=== PATIENT | male | born 1960 | race Caucasian/White ===

== ENCOUNTER 2017-06-02 14:11 | Observation (INO) ==
--- NOTE | 2017-06-02 15:13 | Emergency Department Note ---
Disposition Clinical Impression: Vertigo, Acute pain of both ears, Anterior neck pain Disposition: Admitted As Inpatient Condition: Fair Time of Disposition: 18:00 SOB HPI - General Chief Complaint: ED Shortness of Breath/Dyspnea Stated Complaint: Robert from ENT Time Seen by Provider: 06/02/17 15:07 Source: patient Limitations: no limitations Nursing Notes Reviewed: Yes Vital Signs Reviewed: Yes - History of Present Illness 56-year-old male complains of right ear pain that started 6 weeks ago which progressed to severe vertigo-like symptoms with associated diaphoresis, nausea and over the last 3 days having difficulty ambulating and reports falling due to dizziness 3 times. Patient denies any injuries related to the falls, and no LOC. Patient states that pain in his right ear has spread to include anterior part of his neck, and describes the discomfort as "someone choking me". [facility] and his had trials of several antibiotics to treat his ear pain symptoms at the onset but his symptoms persist. Patient was referred to ENTand was being evaluated today by Fabien Ramirez, and based on his symptoms, sent to the ER for evaluation. - Related Data Home Medications Medication Instructions Recorded Confirmed Amoxicillin/Clavulanate [Augmentin] 875 mg PO BIDWM 06/02/17 Atorvastatin [Lipitor] 40 mg PO HS 06/02/17 06/02/17 Baclofen 20 mg PO TID PRN 06/02/17 06/02/17 Benzonatate [Tessalon] 100 mg PO TID 06/02/17 Carboxymethylcellulose Sodium 1 drop BOTH EYES TID 06/02/17 06/02/17 [Refresh Liquigel] Cinnamon Bark [Cinnamon] 500 mg PO DAILY 06/02/17 06/02/17 Clopidogrel [Plavix] 75 mg PO DAILY 06/02/17 06/02/17 Curcumin 1 tab PO DAILY 06/02/17 06/02/17 Diclofenac Sodium [Voltaren] 2 gm TP BID 06/02/17 06/02/17 Etodolac [Lodine] 400 mg PO BID 06/02/17 06/02/17 Furosemide [Lasix] 20 mg PO DAILY PRN 06/02/17 06/02/17 Gabapentin [Neurontin] 600 mg PO QID 06/02/17 06/02/17 Lactobacillus Acidophilus 1 each PO BID 06/02/17 06/02/17 [Acidophilus] Lidocaine 4% CRM (LMX) [Lmx 4] 1 appl TP BID 06/02/17 06/02/17 Loperamide HCl [Anti-Diarrheal] 2 mg PO TID PRN 06/02/17 06/02/17 Multivitamin [One Daily 1 each PO DAILY 06/02/17 06/02/17 Multivitamin] Mupirocin [Bactroban Oint] 1 appl TP TID 06/02/17 06/02/17 Naproxen [Naprosyn] 500 mg PO BID 06/02/17 06/02/17 Niacin 100 mg PO DAILY 06/02/17 06/02/17 Omeprazole [PriLOSEC] 20 mg PO DAILY 06/02/17 06/02/17 Potassium Citrate/Citric Acid 10 ml PO DAILY 06/02/17 06/02/17 [Virtrate-K Solution] Promethazine [Phenergan] 25 mg PO Q6H PRN 06/02/17 06/02/17 Trazodone HCl 100 mg PO HS PRN 06/02/17 06/02/17 Vardenafil HCl [Levitra] 10 mg PO AD PRN 06/02/17 06/02/17 Venlafaxine XR (24 HR) [Effexor XR] 150 mg PO DAILY 06/02/17 06/02/17 metFORMIN [Glucophage] 500 mg PO BIDWM 06/02/17 06/02/17 Allergies Allergy/AdvReac Type Severity Reaction Status Date / Time No Known Allergies Allergy Verified 06/02/17 14:33 All systems ED: reviewed and negative except as stated. Review of Systems: As Per HPI Constitutional: Reports: weakness, night sweats. Denies: fever, chills ENT ED: Reports: ear pain. Denies: hearing loss Cardiovascular: Denies: chest pain Respiratory: Denies: cough, dyspnea, wheezes Gastrointestinal: Reports: nausea. Denies: abdominal pain, vomiting, diarrhea Genitourinary: Denies: urgency, dysuria Musculoskeletal: Reports: neck pain. Denies: back pain Neurological: Reports: vertigo Past Medical History - Past Medical History Attestation: Yes The following information was validated with the patient. Source: patient, nursing notes reviewed Medical history: Reports: coronary artery disease, diabetes, hyperlipidemia, hypertension, TIA, other Psychiatric history: Reports: PTSD - Social History Smoking Status: Current every day smoker Smokeless Tobacco Status: No Alcohol use: Reports: none Drug use: Reports: none Physical Exam Vital Signs Temperature 98.9 F 06/02/17 14:30 Pulse Rate 85 06/02/17 14:30 Respiratory Rate 24 06/02/17 14:30 Blood Pressure 115/82 06/02/17 14:30 O2 Sat by Pulse Oximetry 96 06/02/17 14:30 Temperature 98.9 F 06/02/17 14:30 Pulse Rate 65 06/02/17 16:15 Respiratory Rate 22 06/02/17 16:15 Blood Pressure 118/71 06/02/17 16:15 O2 Sat by Pulse Oximetry 96 06/02/17 16:15 Oxygen Delivery Oxygen Delivery Room Air CONSTITUTIONAL: Alert and oriented X3, well-nourished, who is holding his head very still due to vertigo with head turning and changes in position. HEAD: Normocephalic; atraumatic. Ears: Tympanic membranes without inflammation or purulence EYES: EOMI,PERRL, no nystagmus appreciated. NOSE: The nose is normal in appearance without rhinorrhea Neck: Mild ant cervical adenopathy b/l with assoc'd TTP. No JVD no tracheal deviation. RESP: Normal chest excursion with respiration; breath sounds clear and equal bilaterally; no wheezes, rhonchi, or rales CARD: Regular rhythm, without murmurs, rub or gallop ABD: Non-distended; non-tender, soft,without rigidity, rebound or guarding SKIN: Normal for age and race; warm and dry; no apparent lesions, no rashes, no diaphoresis. NEUROLOGICAL: Patient is alert and oriented times three. Cranial nerves III- XII are intact. Sensory and motor functions are intact. Strength is 5/5 for flexion and extension in all 4 extremities. Patellar DTRS are equal and intact. Finger to nose testing is equal and normal bilaterally. No dysdiadochokinesis. Unable to ambulate secondary to severe vertigo-like symptoms with sitting up - General Limitations: no limitations General appearance: alert Course - Reevaluation(s) Reevaluation #1: Patient is back from CT. Patient states she is feeling a little better after the meclizine. Patient sat up but immediately felt dizzy again and had to close his eyes and sit back. Upon sitting back complaining of bilateral ear pain. Time: 17:25 Time: 18:23 - Consultations Consultation #1: I spoke to Dr. Conn, and he said he sent the patient over to the emergency department for his profound weakness. He did not find anything alarming. Time: 15:31 Time: 18:23 Vital Signs Temperature 98.9 F 06/02/17 14:30 Pulse Rate 85 06/02/17 14:30 Respiratory Rate 24 06/02/17 14:30 Blood Pressure 115/82 06/02/17 14:30 O2 Sat by Pulse Oximetry 96 06/02/17 14:30 Temperature 97.8 F 06/03/17 07:56 Pulse Rate 53 06/03/17 07:56 Respiratory Rate 14 06/03/17 07:56 Blood Pressure 107/67 06/03/17 07:56 O2 Sat by Pulse Oximetry 97 06/03/17 07:56 Oxygen Delivery Oxygen Delivery Room Air Shortness of Breath/Dyspnea - MDM Narrative Medical decision making narrative: 56-year-old male presents with bilateral ear pain, and anterior neck pain/ squeezing sensation that has been progressively worsening for the past 6 weeks. Patient has severe vertigo-like symptoms which causes diaphoresis and pallor and extreme nausea with generalized weakness which was witnessed at ENT visit today and patient was directed to the ED. Patient's symptoms concerning for possible peripheral of BPPV, vestibular neuronitis, Meniere's disease given patient's (complaint of severe tinnitus along with ear pain, but no diminished hearing) versus central causes of vertigo of compression of cranial nerve VIII or damage to vestibular apparatus within the ear. CT head was ordered to investigate central causes of vertigo and possible. Patient was given meclizine as well which had minimal effect. Head CT shows a remote left frontal lobe infarct but no other abnormalities. CT cervical soft tissue showed no abnormalities. Chest x-ray was clear of any abnormalities. Patient's lab workup was negative for any abnormal findings, troponin was negative, TSH is negative. Patient's symptoms have continued to persist and we recommend admission for further workup and MRI of the brain with neurology consult. Patient understands and agrees to this plan of action and accepts the decision for admission. Patient was accepted for admission by hospitalist Stalin Perez who accepted patient in stable condition. - Lab Data Lab results reviewed: Yes I reviewed the patient's lab results. Lab results narrative: Short CBC 06/02/17 Range/Units 16:06 WBC 10.4 (4.3-11.1) K/mcL Hgb 17.1 H (12.9-16.9) g/dL Hct 49.2 (37.5-50.1) % Plt Count 220 (140-400) K/mcL Neutrophils # 6.4 (1.6-8.9) K/mcL BMP 06/02/17 Range/Units 16:06 Sodium 139 (136-145) mEq/L Potassium 3.9 (3.5-5.1) mEq/L Chloride 112 H (98-107) mEq/L Carbon Dioxide 24 (23-29) mEq/L BUN 15 (6-20) mg/dL Creatinine 0.99 (0.70-1.30) mg/dL Glucose 75 (70-105) mg/dL Calcium 9.6 (8.6-10.3) mg/dL Cardiac Enzymes 06/02/17 Range/Units 16:06 Troponin I < 0.03 (< 0.04) ng/mL Liver Function 06/02/17 Range/Units 16:06 Total Bilirubin 0.8 (0.3-1.0) mg/dL AST 16 (13-39) Units/L ALT 14 (7-52) Units/L Alkaline Phosphatase 88 (34-104) Units/L Albumin 4.4 (3.5-5.7) g/dL Result diagrams: 06/02/17 16:06 06/03/17 05:56 Lab Results 06/02/17 06/02/17 06/02/17 Range/Units 16:06 16:06 16:06 WBC 10.4 (4.3-11.1) K/mcL RBC 5.46 (4.19-5.50) M/mcL Hgb 17.1 H (12.9-16.9) g/dL Hct 49.2 (37.5-50.1) % MCV 90.1 (83.0-100.0) fL MCH 31.3 (28.0-33.3) pg MCHC 34.8 (31.6-35.5) g/dL RDW 13.4 (11.5-14.5) % Plt Count 220 (140-400) K/mcL MPV 9.4 (9.4-12.4) fL Immature Gran % 0.4 (0-4) % Seg Neutrophils % 61.5 % Lymphocytes % 26.8 % Monocytes % 7.9 % Eosinophils % 2.6 % Basophils % 0.8 % Neutrophils # 6.4 (1.6-8.9) K/mcL Lymphocytes # 2.8 (0.6-4.6) K/mcL Monocytes # 0.8 (0.0-1.3) K/mcL Eosinophils # 0.3 (0.0-0.6) K/mcL Basophils # 0.1 (0.0-0.2) K/mcL Sodium 139 (136-145) mEq/L Potassium 3.9 (3.5-5.1) mEq/L Chloride 112 H (98-107) mEq/L Carbon Dioxide 24 (23-29) mEq/L BUN 15 (6-20) mg/dL Creatinine 0.99 (0.70-1.30) mg/dL Est GFR ( Amer) > 60 (> 60) Est GFR (Non-Af Amer) > 60 (> 60) BUN/Creatinine Ratio 15 (6-26) Glucose 75 (70-105) mg/dL Calculated Osmolality 288 (280-300) Calcium 9.6 (8.6-10.3) mg/dL Total Bilirubin 0.8 (0.3-1.0) mg/dL AST 16 (13-39) Units/L ALT 14 (7-52) Units/L Alkaline Phosphatase 88 (34-104) Units/L Troponin I < 0.03 (< 0.04) ng/mL Serum Total Protein 7.1 (6.4-8.9) g/dL Albumin 4.4 (3.5-5.7) g/dL Globulin 2.7 (2.4-3.5) g/dL Albumin/Globulin Ratio 1.6 (1.1-2.2) TSH (0.340-5.600) mcIU/mL 06/02/17 Range/Units 16:06 WBC (4.3-11.1) K/mcL RBC (4.19-5.50) M/mcL Hgb (12.9-16.9) g/dL Hct (37.5-50.1) % MCV (83.0-100.0) fL MCH (28.0-33.3) pg MCHC (31.6-35.5) g/dL RDW (11.5-14.5) % Plt Count (140-400) K/mcL MPV (9.4-12.4) fL Immature Gran % (0-4) % Seg Neutrophils % % Lymphocytes % % Monocytes % % Eosinophils % % Basophils % % Neutrophils # (1.6-8.9) K/mcL Lymphocytes # (0.6-4.6) K/mcL Monocytes # (0.0-1.3) K/mcL Eosinophils # (0.0-0.6) K/mcL Basophils # (0.0-0.2) K/mcL Sodium (136-145) mEq/L Potassium (3.5-5.1) mEq/L Chloride (98-107) mEq/L Carbon Dioxide (23-29) mEq/L BUN (6-20) mg/dL Creatinine (0.70-1.30) mg/dL Est GFR ( Amer) (> 60) Est GFR (Non-Af Amer) (> 60) BUN/Creatinine Ratio (6-26) Glucose (70-105) mg/dL Calculated Osmolality (280-300) Calcium (8.6-10.3) mg/dL Total Bilirubin (0.3-1.0) mg/dL AST (13-39) Units/L ALT (7-52) Units/L Alkaline Phosphatase (34-104) Units/L Troponin I (< 0.04) ng/mL Serum Total Protein (6.4-8.9) g/dL Albumin (3.5-5.7) g/dL Globulin (2.4-3.5) g/dL Albumin/Globulin Ratio (1.1-2.2) TSH 0.976 (0.340-5.600) mcIU/mL - Radiology Data Radiology results reviewed: Yes I reviewed the patient's radiology results. Chest X-Ray 06/02/17 14:36 IMPRESSION: No active cardiopulmonary disease D/ / Johnathan Daily MD / Johnathan Daily MD Interpreting Provider: Johnathan Daily MD Head CT 06/02/17 15:39 IMPRESSION: 1. No acute intracranial abnormality. 2. No abnormal intracranial enhancement. 3. Remote left frontal lobe infarct. D/ / Francis Grewal MD / Francis Grewal MD Interpreting Provider: Francis Grewal MD Soft Tissue Neck CT 06/02/17 15:48 IMPRESSION: No acute abnormality of the neck soft tissues or finding to suggest etiology of patient's symptoms. D/ / Migue Floyd / Migue Floyd Interpreting Provider: Migue Floyd - EKG Data EKG attestation: Yes I reviewed and interpreted this EKG. EKG results narrative: EKG taken 06/02/2017 at 1440 hrs. shows sinus rhythm at a rate of 75 beats minute with no acute ST elevations or depressions nares, no QS widening or QT prolongation. No old EKG for comparison. Attestation Statement - Attestation Attestation: Patient is a 56 yo wm, who is sent to us by Dr. Conn from his ENT office for vertigo associated with nausea and diaphoresis. [facility] hx of grad worsening bilateral ear pain, R>L. Pt was initially treated with various antibx regimens, with no improvement. Pt states that over the past week, he has been having grad worsening vertigo, worse with head turning and positional changes associated with worsening ear pain. Pt also c/o "choking sensation" around ant neck, with no visible STS/overlying skin changes. Pt denies ST, no odynophagia/dysphagia, no difficulty managing secretions, and no stridor or resp distress. No facial edema, no SOB/cough/ wheezing. No F/C,no reported weight loss. Pt also states that he has been experiencing night sweats for the past week as well. No hx falls/trauma preceding the onset of symptoms. Pt does endorse 3 recent mechanical falls at home secondary to the intensity of the dizziness at times. Pt denies any physical injuries related to the falls, and no LOC. Pt with GCS=15, and no focal deficits with clear speech. Pt denies any COOPER/visual changes. I agree with pt's PE fidnings as documented, VSS on arrival. EKG shows NSR without acute ischemia. Pt placed on continuous cardiac monitoring, pulse ox, IV est and given IVF and zofran/meclizine. Pt with lab evaluation and CT imaging of head/neck for further neuro eval. Pt with only mild improvement of symptoms following meds. Pt's labs wnl, CT imaging wnl. Concerned with ongoing vertigo and pt unable to ambulate due to ongoing vertigo. Would benefit from further inpt mgmt and symptom tx; D/W hospitalist who accepted pt for admission.
[2017-06-02] MEDS ORDERED: 0.9 % Sodium Chloride 500 ML IVC ONE (15:38)
[2017-06-02] MEDS ORDERED: Ondansetron 4 MG/2 ML VIAL IVP ONE (15:38)
[2017-06-02 16:25] LABS: Basophils # 0.1 K/mcL (0.0-0.2); Basophils % 0.8 %; Eosinophils # 0.3 K/mcL (0.0-0.6); Eosinophils % 2.6 %; Hematocrit 49.2 % (37.5-50.1); Hemoglobin 17.1 g/dL (12.9-16.9); Immature Granulocytes % 0.4 % (0-4); Lymphocytes # 2.8 K/mcL (0.6-4.6); Lymphocytes % 26.8 %; Mean Corpuscular HGB Conc 34.8 g/dL (31.6-35.5); Mean Corpuscular Hemoglobin 31.3 pg (28.0-33.3); Mean Corpuscular Volume 90.1 fL (83.0-100.0); Mean Platelet Volume 9.4 fL (9.4-12.4); Monocytes # 0.8 K/mcL (0.0-1.3); Monocytes % 7.9 %; Neutrophils # 6.4 K/mcL (1.6-8.9); Platelet Count 220 K/mcL (140-400); Red Blood Count 5.46 M/mcL (4.19-5.50); Red Cell Distribution Width 13.4 % (11.5-14.5); Segmented Neutrophils % 61.5 %
[2017-06-02 16:33] LABS: Alanine Aminotransferase 14 Units/L (7-52); Albumin 4.4 g/dL (3.5-5.7); Albumin/Globulin Ratio 1.6 (1.1-2.2); Alkaline Phosphatase 88 Units/L (34-104); Aspartate Amino Transferase 16 Units/L (13-39); BUN/Creatinine Ratio 15 (6-26); Bilirubin,Total 0.8 mg/dL (0.3-1.0); Blood Urea Nitrogen 15 mg/dL (6-20); Calcium 9.6 mg/dL (8.6-10.3); Carbon Dioxide 24 mEq/L (23-29); Chloride 112 mEq/L (98-107); Globulin 2.7 g/dL (2.4-3.5); Glucose 75 mg/dL (70-105); Osmolality,Calculated 288 (280-300); Potassium 3.9 mEq/L (3.5-5.1); Sodium 139 mEq/L (136-145); Total Protein 7.1 g/dL (6.4-8.9); eGFR For African Americans > 60 (> 60); eGFR For Non-African Americans > 60 (> 60)
--- NOTE | 2017-06-02 20:40 | Internal Med History&Physical ---
Date of Encounter: 06/02/17 Time of Encounter: 20:34 Assessment and Plan (1) Diabetes 1.5, managed as type 2 Current visit: Yes Status: Acute Chronic we will resume home medication and place on sliding scale (2) Hyperlipidemia Current visit: Yes Status: Chronic Chronic recheck in a.m. Qualifiers: Hyperlipidemia type: pure hypercholesterolemia Qualified Code(s): E78.00 - Pure hypercholesterolemia, unspecified; E78.0 - Pure hypercholesterolemia (3) CAD (coronary artery disease) Current visit: Yes Status: Chronic Detail of patient history of CAD S having no chest pain Qualifiers: Coronary Disease-Associated Artery/Lesion type: [place] artery [place] vs. transplanted heart: nikolai heart Associated angina: without angina Qualified Code(s): I25.10 - Atherosclerotic heart disease of nikolai coronary artery without angina pectoris (4) Acute pain of both ears Current visit: Yes Status: Acute Patient was seen by ENT today and sent to the emergency room (5) Hx of syncope Current visit: Yes Status: Acute Patient reports episode of syncope about 3 times this week patient blood pressures as low likely orthostatic hypotension versus vasodepressor syncope or troponin ekg monitor tech and IV hydration (6) Vertigo Current visit: Yes Status: Acute Regarding dizziness or MRI of the head and MRA to evaluate posterior circulation also neurology consult Internal Medicine - H&P: HPI Chief complaint: virtigo Admitted From: Emergency Dept Plans for Post Hospital Care: Home History of present illness: Mr. Nath is a 56 year old male Patient with history of CAD, diabetes, high cholesterol, hypertension, TIA and PTSD Patient is sent to emergency room from ENT office due to acute vertigo pain in both ears. Patient has had right ear pain started about 6 weeks ago with severe vertigo-like syndrome worse at night associated with diaphoresis and nausea and loss of balance patient also has had recurrent syncope been seen and tried on several different [facility] by [facility] the symptom was not getting better he was sent to r ENT for evaluation and at ENT office Patient developed weakness , nauseated and bilateral ear pain and then sent to the emergency room. CT of the head in the emergency room was negative patient being admitted for further evaluation with MRI. Patient feels better after being given meclizine in the emergency room per ER documentation ENT evaluation was unremarkable findings to explain symptoms Past Med Surg Social Fam HX - Past Medical History Medical history: coronary artery disease, diabetes, hyperlipidemia, hypertension , TIA, other Psychiatric history: PTSD - Social History Smoking Status: Current every day smoker Smokeless Tobacco Status: No Alcohol use: none Drug use: none Internal Medicine - H&P: Meds Amoxicillin/Clavulanate [Augmentin] 875 mg PO BIDWM 06/02/17 [History] Atorvastatin [Lipitor] 40 mg PO HS 06/02/17 [History] Baclofen 20 mg PO TID PRN 06/02/17 [History] Benzonatate [Tessalon] 100 mg PO TID 06/02/17 [History] Carboxymethylcellulose Sodium [Refresh Liquigel] 1 drop BOTH EYES TID 06/02/17 [ History] Cinnamon Bark [Cinnamon] 500 mg PO DAILY 06/02/17 [History] Clopidogrel [Plavix] 75 mg PO DAILY 06/02/17 [History] Curcumin 1 tab PO DAILY 06/02/17 [History] Diclofenac Sodium [Voltaren] 2 gm TP BID 06/02/17 [History] Etodolac [Lodine] 400 mg PO BID 06/02/17 [History] Furosemide [Lasix] 20 mg PO DAILY PRN 06/02/17 [History] Gabapentin [Neurontin] 600 mg PO QID 06/02/17 [History] Lactobacillus Acidophilus [Acidophilus] 1 each PO BID 06/02/17 [History] Lidocaine 4% CRM (LMX) [Lmx 4] 1 appl TP BID 06/02/17 [History] Loperamide HCl [Anti-Diarrheal] 2 mg PO TID PRN 06/02/17 [History] Multivitamin [One Daily Multivitamin] 1 each PO DAILY 06/02/17 [History] Mupirocin [Bactroban Oint] 1 appl TP TID 06/02/17 [History] Naproxen [Naprosyn] 500 mg PO BID 06/02/17 [History] Niacin 100 mg PO DAILY 06/02/17 [History] Omeprazole [PriLOSEC] 20 mg PO DAILY 06/02/17 [History] Potassium Citrate/Citric Acid [Virtrate-K Solution] 10 ml PO DAILY 06/02/17 [ History] Promethazine [Phenergan] 25 mg PO Q6H PRN 06/02/17 [History] Trazodone HCl 100 mg PO HS PRN 06/02/17 [History] Vardenafil HCl [Levitra] 10 mg PO AD PRN 06/02/17 [History] Venlafaxine XR (24 HR) [Effexor XR] 150 mg PO DAILY 06/02/17 [History] metFORMIN [Glucophage] 500 mg PO BIDWM 06/02/17 [History] 3 Allergy/AdvReac Type Severity Reaction Status Date / Time No Known Allergies Allergy Verified 06/02/17 14:33 All Systems PM: A 10-system review of systems was performed and is negative for pertinent findings except as documented above in the HPI. - Constitutional Constitutional: no chills, no fever(s), no night sweats - EENT Eyes: no change in vision, no discharge, no pain, no photophobia Ears: ear pain, tinnitus, other, no ear discharge Nose, mouth and throat: no dysphagia, no nasal discharge, no neck pain, no sore throat - Cardiovascular Cardiovascular ROS IM: syncope, no chest pain, no diaphoresis, no dyspnea, no lightheadedness, no palpitations - Respiratory Respiratory: no cough, no dyspnea, no wheezing, no excessive phlegm production - Gastrointestinal Gastrointestinal: no abdominal pain, no diarrhea, no hematemesis, no hematochezia, no melena, no nausea, no vomiting - Musculoskeletal Musculoskeletal ROS IM: no numbness, no tingling - Integumentary Integumentary IM: no rash, no unusual bruising - Neurological Neurological ROS: vertigo - Hematologic/Lymphatic Hematologic/Lymphatic: no easy bruising - Constitutional Vitals: Temp Pulse Resp BP Pulse Ox 98.4 F 70 16 96/57 94 06/02/17 20:33 06/02/17 20:33 06/02/17 20:33 06/02/17 20:33 06/02/17 20:33 - Head Head exam: Present: atraumatic, normocephalic - Eye Eye exam: Present: PERRL, conjuntiva pink, sclera anicteric Pupils: Present: PERRL - Neck Neck exam general surgery: Present: supple, trachea midline. Absent: lymphadenopathy - Respiratory Respiratory exam: Present: CTAB. Absent: accessory muscle use, rales, rhonchi, wheezes - Cardiovascular Cardiovascular exam: Present: RRR, +S1, +S2. Absent: diastolic murmur, gallop, rubs, systolic murmur - GI/Abdominal GI/Abdominal exam: Present: normal bowel sounds, soft, no peritoneal signs. Absent: distended, tenderness - Extremities Exam Extremities exam: Present: warm, radial pulses palpable and symmetrical. Absent : calf tenderness, cyanotic, pedal edema - Neurological Exam Neurological exam: Present: CN II-XII intact, oriented X3, no focal deficits. Absent: pronater drift, facial droop, speech deficit - Skin Skin exam: Present: dry, intact Internal Med - H&P Results - Labs CBC & Chem 7: 06/02/17 16:06 06/02/17 16:06
[2017-06-02] MEDS ORDERED: Naloxone 0.4 MG/ML INJ IVP PRN (20:44)
[2017-06-02] MEDS ORDERED: traMADol 50 MG TABLET PO PRN (20:44)
[2017-06-02] MEDS ORDERED: Acetaminophen 325 MG TABLET PO PRN (20:44)
[2017-06-02] MEDS ORDERED: traZODone 50 MG TABLET PO PRN (20:47)
[2017-06-02] MEDS ORDERED: Baclofen 10 MG TABLET PO PRN (20:47)
[2017-06-02] MEDS: Gabapentin 300 MG CAPSULE PO SCH (22:53)
[2017-06-02] MEDS: 0.9 % Sodium Chloride 1,000 ML IVC SCH (22:53)
[2017-06-02] MEDS: Lactobacillus 1 EACH CAP.SPRINK PO SCH (22:53)
[2017-06-02] MEDS: Artificial Tears SOLN 15 ML BOTTLE BOTH EYES SCH (22:54)
[2017-06-02] MEDS: Lidocaine 4% CREAM (LMX) 5 GM TP SCH (23:46)
[2017-06-02] MEDS: (Diclofenac Sodium [Voltaren] 2 GM) TP SCH (23:47)
[2017-06-03 06:44] LABS: Alanine Aminotransferase 14 Units/L (7-52); Albumin 3.8 g/dL (3.5-5.7); Albumin/Globulin Ratio 1.6 (1.1-2.2); Alkaline Phosphatase 75 Units/L (34-104); Aspartate Amino Transferase 15 Units/L (13-39); BUN/Creatinine Ratio 18 (6-26); Bilirubin,Total 0.7 mg/dL (0.3-1.0); Blood Urea Nitrogen 16 mg/dL (6-20); Calcium 8.9 mg/dL (8.6-10.3); Carbon Dioxide 26 mEq/L (23-29); Chloride 113 mEq/L (98-107); Chol/HDL Ratio 4.1 (0-4.9); Cholesterol 116 mg/dL (< 200); Globulin 2.4 g/dL (2.4-3.5); Glucose 87 mg/dL (70-105); HDL Cholesterol 28 mg/dL (40-59); LDL Cholesterol,Calculated 65 mg/dL (0-99); Magnesium 1.9 mg/dL (1.6-2.6); Osmolality,Calculated 291 (280-300); Sodium 140 mEq/L (136-145); Total Protein 6.2 g/dL (6.4-8.9); Triglycerides 113 mg/dL (< 150); eGFR For African Americans > 60 (> 60); eGFR For Non-African Americans > 60 (> 60)
[2017-06-03] MEDS: 0.9 % Sodium Chloride 1,000 ML IVC SCH (08:23)
[2017-06-03] MEDS: Gabapentin 300 MG CAPSULE PO SCH ×4 (08:26→21:22)
[2017-06-03] MEDS: Lidocaine 4% CREAM (LMX) 5 GM TP SCH (08:26)
[2017-06-03] MEDS: Lactobacillus 1 EACH CAP.SPRINK PO SCH ×2 (08:27→21:22)
[2017-06-03] MEDS: Venlafaxine XR (24 HR) 150 MG CAP.ER.24H PO SCH (08:27)
[2017-06-03] MEDS: Multivit/Ca/Min/Fe/FA 1 TAB TABLET PO SCH (08:27)
[2017-06-03] MEDS: (Diclofenac Sodium [Voltaren] 2 GM) TP SCH (08:29)
[2017-06-03] MEDS: Artificial Tears SOLN 15 ML BOTTLE BOTH EYES SCH ×3 (08:29→21:22)
--- NOTE | 2017-06-03 08:53 | Cardiology Consult Note ---
Date of Encounter: 06/03/17 Time of Encounter: 08:51 Assessment and Plan (1) Hx of syncope Current Visit: Yes Status: Acute Patient reports lightheadedness and room spinning upon standing. No LOC. Appears orthostatic in nature. Do not believe this is cardiac in nature. MRI brain and MRA head and neck will be the most important investigations. Will f/u on echo. If normal patient will not require any further cardiac work up. patient bradycardicat timest the 50's. Asymptomatic. HR 51-85. continue tele monitoring. would suggest checking orthostatic vital signs BPs 132-82/86-50 over last 24hrs Discussion w patient/family: The assessment and plan as outlined above was discussed with the patient and/or family members who expressed understanding and agreement. All questions were answered. Thank you for involving us in the care of your patient. Please call with any questions. History of Present Illness Consult date: 06/02/17 Requesting physician: Nyla Pope Consult reason: syncope Chief complaint: Vertigo, Neck pain History of present illness: Mr. Nath is a 56 year old male c PMHx of CAD, DM, HLD, HTN, TIA who reports to [facility] for anterior neck pain and vertigo. Patient reports he has been having anterior neck pain that feels like someone is choking him for the last 6 weeks. This pain radiates up to his ears. Patient appears to have had concerns about his neck for almost a year seeing ENT for the first time in June of 2016. Patient has been worked up with CT soft tissue of neck at that time that was normal. Patient reports his BP has been low lately and that when he stands up he will have lightheadedness, that progresses to room spinning and falling down , but no LOC. Patient reports generalized weakness. Patient denies chest pain, SOB, palpitations, focal weakness, slurred speech, new numbness/tingling. On this admission he has received another CT neck soft tissue which was again normal, CT head which showed no acute intercranial abnormality, just a remote left frontal infarct. Troponin's negative x 3, TSH normal, lab work overall unremarkable. Patient is scheduled for an ECHO, an MRI brain, and an MRA head and neck. Past Med Surg Social Fam HX - Past Medical History Medical history: coronary artery disease, diabetes, hyperlipidemia, hypertension , TIA, other Psychiatric history: PTSD - Social History Smoking Status: Current every day smoker Smokeless Tobacco Status: No Alcohol use: none Drug use: none Medications and Allergies Amoxicillin/Clavulanate [Augmentin] 875 mg PO BIDWM 06/02/17 [History] Atorvastatin [Lipitor] 40 mg PO HS 06/02/17 [History] Baclofen 20 mg PO TID PRN 06/02/17 [History] Benzonatate [Tessalon] 100 mg PO TID 06/02/17 [History] Carboxymethylcellulose Sodium [Refresh Liquigel] 1 drop BOTH EYES TID 06/02/17 [ History] Cinnamon Bark [Cinnamon] 500 mg PO DAILY 06/02/17 [History] Clopidogrel [Plavix] 75 mg PO DAILY 06/02/17 [History] Curcumin 1 tab PO DAILY 06/02/17 [History] Diclofenac Sodium [Voltaren] 2 gm TP BID 06/02/17 [History] Etodolac [Lodine] 400 mg PO BID 06/02/17 [History] Furosemide [Lasix] 20 mg PO DAILY PRN 06/02/17 [History] Gabapentin [Neurontin] 600 mg PO QID 06/02/17 [History] Lactobacillus Acidophilus [Acidophilus] 1 each PO BID 06/02/17 [History] Lidocaine 4% CRM (LMX) [Lmx 4] 1 appl TP BID 06/02/17 [History] Loperamide HCl [Anti-Diarrheal] 2 mg PO TID PRN 06/02/17 [History] Multivitamin [One Daily Multivitamin] 1 each PO DAILY 06/02/17 [History] Mupirocin [Bactroban Oint] 1 appl TP TID 06/02/17 [History] Naproxen [Naprosyn] 500 mg PO BID 06/02/17 [History] Niacin 100 mg PO DAILY 06/02/17 [History] Omeprazole [PriLOSEC] 20 mg PO DAILY 06/02/17 [History] Potassium Citrate/Citric Acid [Virtrate-K Solution] 10 ml PO DAILY 06/02/17 [ History] Promethazine [Phenergan] 25 mg PO Q6H PRN 06/02/17 [History] Trazodone HCl 100 mg PO HS PRN 06/02/17 [History] Vardenafil HCl [Levitra] 10 mg PO AD PRN 06/02/17 [History] Venlafaxine XR (24 HR) [Effexor XR] 150 mg PO DAILY 06/02/17 [History] metFORMIN [Glucophage] 500 mg PO BIDWM 06/02/17 [History] 3 Allergy/AdvReac Type Severity Reaction Status Date / Time No Known Allergies Allergy Verified 06/02/17 14:33 All Systems Review: A 10-system review of systems was performed and is negative for pertinent findings except as documented above in the HPI. Physical Examination Vital Signs, Last 4 Hours Temp Pulse Resp BP Pulse Ox 06/03/17 07:56 97.8 F 53 14 107/67 97 General: Conversant, No Apparent Distress HEENT: Atraumatic, Normocephaly, Mucus Membranes Moist Neck: No JVD, Normal carotid pulses Cardiac: Reg Rate and Rhythm, Normal S1 and S2, No Murmur Lungs: Normal Breath Sounds, No Wheeze, Rales, Rhonchi Neuro: Alert and responsive, No focal deficits noted Abdomen: Soft, Non-Tender Skin: No rashes noted on visualized skin Musculoskeletal: No Chest Wall Tenderness Extremities: No Clubbing, No Cyanosis, No Edema, Normal Pulses Results 06/02/17 16:06 06/03/17 05:56 Lab Results 06/02/17 06/03/17 06/03/17 22:00 05:56 05:56 Sodium 140 Potassium 4.0 Chloride 113 H Carbon Dioxide 26 BUN 16 Creatinine 0.90 Glucose 87 Calcium 8.9 Magnesium 1.9 Total Bilirubin 0.7 AST 15 ALT 14 Alkaline Phosphatase 75 Troponin I < 0.03 < 0.03 B-Natriuretic Peptide 06/03/17 05:56 Sodium Potassium Chloride Carbon Dioxide BUN Creatinine Glucose Calcium Magnesium Total Bilirubin AST ALT Alkaline Phosphatase Troponin I B-Natriuretic Peptide 11 Consult Discharge Plan - Plan Referrals: [facility] [Outside]
[2017-06-03] MEDS ORDERED: (Cinnamon Bark [Cinnamon] 500 MG) PO SCH (09:00)
[2017-06-03] MEDS ORDERED: (Niacin [Niacin] 100 MG) PO SCH (09:00)
--- NOTE | 2017-06-03 09:26 | Neurology - Consult Note ---
Date of Encounter: 06/03/17 Time of Encounter: 09:23 Assessment and Plan (1) Vertigo Current Visit: Yes Status: Acute Patient presents with vertigo in the setting head movements that was sudden onset and has been going on intermittently for the last week. Patient also has 2 beat nystagmus of the left eye with left gaze. Patient's symptoms appear to be consistent BVVP. Concern for intracranial lesion as low as the patient has no other focal deficits however it is reasonable to proceed with intracranial imaging to rule out intracranial pathology. Orthostatic hypotension is also a possibility so would agree with checking orthostatic vital signs. Recommend physical therapy consult to evaluate and treat BVVP. We will follow-up after neuroimaging. History of Present Illness Chief complaint: vertigo HPI: Mr. Nath is a 56 year old male who presents with dizziness. Patient states that approximately week ago he had sudden onset of his dizziness symptoms. He reports a feeling of lightheadedness in room spinning. He states this is intermittent and comes and goes. He feels like this is brought on by movement of his head or neck. Dates the dizziness can last for variable amounts times from minutes to a half hour so. He states it is so severe that he falls times. He denies loss of consciousness. He states he has a chronic headache that occurs approximately weekly and has for years, he denies any new or changing headache. He reports some nausea associated with his symptoms. He reports chronic left arm numbness and tingling due to degenerative disc disease and he has had for many years. Denies any new focal deficits. He denies any new medication changes. Past Med Surg Social Fam HX - Past Medical History Medical history: coronary artery disease, diabetes, hyperlipidemia, hypertension , TIA, other Psychiatric history: PTSD - Social History Smoking Status: Current every day smoker Smokeless Tobacco Status: No Alcohol use: none Drug use: none Medications and Allergies Amoxicillin/Clavulanate [Augmentin] 875 mg PO BIDWM 06/02/17 [History] Atorvastatin [Lipitor] 40 mg PO HS 06/02/17 [History] Baclofen 20 mg PO TID PRN 06/02/17 [History] Benzonatate [Tessalon] 100 mg PO TID 06/02/17 [History] Carboxymethylcellulose Sodium [Refresh Liquigel] 1 drop BOTH EYES TID 06/02/17 [ History] Cinnamon Bark [Cinnamon] 500 mg PO DAILY 06/02/17 [History] Clopidogrel [Plavix] 75 mg PO DAILY 06/02/17 [History] Curcumin 1 tab PO DAILY 06/02/17 [History] Diclofenac Sodium [Voltaren] 2 gm TP BID 06/02/17 [History] Etodolac [Lodine] 400 mg PO BID 06/02/17 [History] Furosemide [Lasix] 20 mg PO DAILY PRN 06/02/17 [History] Gabapentin [Neurontin] 600 mg PO QID 06/02/17 [History] Lactobacillus Acidophilus [Acidophilus] 1 each PO BID 06/02/17 [History] Lidocaine 4% CRM (LMX) [Lmx 4] 1 appl TP BID 06/02/17 [History] Loperamide HCl [Anti-Diarrheal] 2 mg PO TID PRN 06/02/17 [History] Multivitamin [One Daily Multivitamin] 1 each PO DAILY 06/02/17 [History] Mupirocin [Bactroban Oint] 1 appl TP TID 06/02/17 [History] Naproxen [Naprosyn] 500 mg PO BID 06/02/17 [History] Niacin 100 mg PO DAILY 06/02/17 [History] Omeprazole [PriLOSEC] 20 mg PO DAILY 06/02/17 [History] Potassium Citrate/Citric Acid [Virtrate-K Solution] 10 ml PO DAILY 06/02/17 [ History] Promethazine [Phenergan] 25 mg PO Q6H PRN 06/02/17 [History] Trazodone HCl 100 mg PO HS PRN 06/02/17 [History] Vardenafil HCl [Levitra] 10 mg PO AD PRN 06/02/17 [History] Venlafaxine XR (24 HR) [Effexor XR] 150 mg PO DAILY 06/02/17 [History] metFORMIN [Glucophage] 500 mg PO BIDWM 06/02/17 [History] 3 Allergy/AdvReac Type Severity Reaction Status Date / Time No Known Allergies Allergy Verified 06/02/17 14:33 All Systems: A 10-system review of systems was performed and is negative for pertinent findings except as documented above in the HPI. Physical Examination - Vital Signs Vital Signs: Initial Vital Signs Temp Pulse Resp BP Pulse Ox 98.9 F 85 24 115/82 96 02/06/18 14:30 06/02/17 14:30 06/02/17 14:30 06/02/17 14:30 06/02/17 14:30 - Exam Exam: Ear canals clear bilaterally, no erythema of the tympanic membrane, no effusions noted. - Constitutional General appearance: comfortable - Neurologic Sensorimotor examination: intact Detailed motor examination: grossly full strength in all extremities Motor examination - right side: 5/5: deltoids, biceps, triceps, wrist flexion, wrist extension, bid manager, hip flexors, tibialis Anterior, quadriceps, toe extension (EHL), plantarflexion Motor examination - left side: 5/5: deltoids, biceps, triceps, wrist flexion, wrist extension, hip flexors, bid manager, quadriceps, tibialis Anterior, toe extension (EHL), plantarflexion Detailed sensory examination: intact Reflexes: Biceps: 1+ (1+ on left, 2+ on right), Triceps: 1+ (1+ on left, 2+ on right), Brachioradialis: 1+ (1+ on left, 2+ on right), Patella: 2+, Achilles: 2+ Mental Status Examination: awake, alert, oriented to person, oriented to place, oriented to time, follows commands appropriately, answers questions appropriately, no agnosia, no aphasia, no aproxia Cranial nerve examination: PERRL, EOMI, visual floyd intact, sensory to face intact, mastication intact, no facial asymmetry is present, no dysarthria, flexes SCM and trapezius muscles symmetrically with full power, tongue protrudes midline, no atrophy or facial fasiculations present Cerebellar examination: no dysmetria, performs finger to nose and heel to cheng symmetrically without ataxia Ocular dysmotility: gaze-evoked nystagmus (2 beat nystagmus of L eye with leftward gaze) Results - Laboratory Findings CBC and BMP: 06/02/17 16:06 06/03/17 05:56 Abnormal lab findings: Abnormal lab results Hgb 17.1 g/dL (12.9-16.9) H 06/02/17 16:06 Chloride 113 mEq/L (98-107) H 06/03/17 05:56 POC Glucose 95 (58-89) H 06/03/17 08:00 Serum Total Protein 6.2 g/dL (6.4-8.9) L 06/03/17 05:56 HDL Cholesterol 28 mg/dL (40-59) L 06/03/17 05:56 Consult Discharge Plan - Plan Referrals: [facility] [Outside]
--- NOTE | 2017-06-03 12:11 | Electrocardiograph Report ---
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
--- NOTE | 2017-06-03 12:25 | Internal Med Progress Note ---
Date of Encounter: 06/03/17 Time of Encounter: 12:23 - Assessment and plan (1) Syncope Current Visit: Yes Status: Acute Assessment and plan: check orthostats POssibly due to BPPV EKG is unremarkable Continue tele NEck MRA no occlusion, Brain MRI is no acute finding Follow ECHO Cardio eval noted Qualifiers: Syncope type: unspecified Qualified Code(s): R55 - Syncope and collapse (2) Diabetes 1.5, managed as type 2 Current Visit: Yes Status: Chronic Assessment and plan: FS acceptable, continue current regimen (3) Vertigo Current Visit: Yes Status: Acute Assessment and plan: Acute on chronic Continue meclizine Patient was referred from ENT clinic PT eval Patient has BPPV, ENT to see as out-patient, discussed with Dr. hathaway who will see patient 06/09/17 at 1pm. (4) CAD (coronary artery disease) Current Visit: Yes Status: Chronic Assessment and plan: no chest pain, continue home meds Qualifiers: Coronary Disease-Associated Artery/Lesion type: [place] artery [place] vs. transplanted heart: [place] heart Associated angina: without angina Qualified Code(s): I25.10 - Atherosclerotic heart disease of [place] coronary artery without angina pectoris (5) Hyperlipidemia Current Visit: Yes Status: Chronic Assessment and plan: continue home meds Qualifiers: Hyperlipidemia type: pure hypercholesterolemia Qualified Code(s): E78.00 - Pure hypercholesterolemia, unspecified; E78.0 - Pure hypercholesterolemia - Subjective Interval history: 56 M Seen and evaluated at bedside Admitted and being worked up for dizziness and syncope Brain MRA, Neck and Brain MRA is unremarkable, ECHO is pending Orthostats is pending No new complain Neuro eval noted - Constitutional Vitals: Temp Pulse Resp BP Pulse Ox 97.9 F 51 18 113/69 94 06/03/17 11:30 06/03/17 11:30 06/03/17 11:30 06/03/17 11:30 06/03/17 11:30 General appearance: Present: A&O X 3, pleasant, no acute distress - Head Head exam: Present: atraumatic, normocephalic - Eye Eye exam: Present: PERRL, conjuntiva pink, sclera anicteric Pupils: Present: PERRL - Neck Neck exam general surgery: Present: supple, trachea midline. Absent: lymphadenopathy - Respiratory Respiratory exam: Present: CTAB. Absent: accessory muscle use, rales, rhonchi, wheezes - Cardiovascular Cardiovascular exam: Present: RRR, +S1, +S2. Absent: diastolic murmur, gallop, rubs, systolic murmur - GI/Abdominal GI/Abdominal exam: Present: normal bowel sounds, soft, no peritoneal signs. Absent: distended, tenderness - Extremities Exam Extremities exam: Present: warm, radial pulses palpable and symmetrical. Absent : calf tenderness, cyanotic, pedal edema - Neurological Exam Neurological exam: Present: alert, CN II-XII intact, oriented X3, no focal deficits. Absent: pronater drift, facial droop, speech deficit Additional comments: Nystagmus ++, LE - Skin Skin exam: Present: dry, intact Internal Medicine: Result - Labs CBC & Chem 7: 06/02/17 16:06 06/03/17 05:56 Labs: BMP 06/03/17 05:56 Sodium 140 Potassium 4.0 Chloride 113 H Carbon Dioxide 26 BUN 16 Creatinine 0.90 Glucose 87 Calcium 8.9 Cardiac Enzymes 06/02/17 06/03/17 Range/Units 22:00 05:56 Troponin I < 0.03 < 0.03 (< 0.04) ng/mL Liver Function 06/03/17 Range/Units 05:56 Total Bilirubin 0.7 (0.3-1.0) mg/dL AST 15 (13-39) Units/L ALT 14 (7-52) Units/L Alkaline Phosphatase 75 (34-104) Units/L Albumin 3.8 (3.5-5.7) g/dL - Impressions Impressions Brain MRI 06/03/17 20:50 IMPRESSION: Motion artifact mildly degrades the images. There are mild chronic small vessel ischemic changes. There are no areas of restricted diffusion to suggest an acute ischemic event. Mucoperiosteal thickening of the sinuses. D/ / 06/03/2017 11:08:57 Teresita Oliveira MD / [email or web address] Interpreting Provider: Teresita Oliveira MD Head MRA 06/03/17 20:50 IMPRESSION: No significant abnormality of the intracranial circulation. D/ / 06/03/2017 11:09:03 Teresita Oliveira MD / [email or web address] Interpreting Provider: Teresita Oliveira MD Neck MRA 06/03/17 20:50 IMPRESSION: No significant abnormality of the neck vessels. D/ / 06/03/2017 11:09:19 Teresita Oliveira MD / [email or web address] Interpreting Provider: Teresita Oliveira MD Consult Discharge Plan - Plan Referrals: [facility] [Outside]
--- NOTE | 2017-06-03 17:15 | ENT - Consult Note ---
Date of Encounter: 06/03/17 Time of Encounter: 17:12 Assessment and Plan (1) Acute pain of both ears Current Visit: Yes Status: Chronic I reassured the patient that there is no acute ear infection or sign of middle ear effusion. I encouraged him to keep his appt with Dr. Conn on Thursday to continue his prior evaluation. History of Present Illness Consult date: 06/03/17 Reason for ENT Consult: other (otalgia?) History of present illness: 56 yo male known to the ENT clinic through Dr. Conn. He was last evaluated by Dr. Conn on 05/27/2017 after missing 4 appointments in a row. Per the office staff when he checked into the clinic desk yesterday he was feeling so badly that he decided to go the ED and was NOT evaluated yesterday in ENT clinic. Today he complains of generalized ear pain, brief vertigo that he says is brought on by turning his head quickly to both sides as well as tinnitis. He says all of these symptoms have been ongoing and are not new. Past Med Surg Social Fam HX - Past Medical History Medical history: coronary artery disease, diabetes, hyperlipidemia, hypertension , TIA, other Psychiatric history: PTSD - Social History Smoking Status: Current every day smoker Smokeless Tobacco Status: No Alcohol use: none Drug use: none Medications and Allergies Amoxicillin/Clavulanate [Augmentin] 875 mg PO BIDWM 06/02/17 [History] Atorvastatin [Lipitor] 40 mg PO HS 06/02/17 [History] Baclofen 20 mg PO TID PRN 06/02/17 [History] Benzonatate [Tessalon] 100 mg PO TID 06/02/17 [History] Carboxymethylcellulose Sodium [Refresh Liquigel] 1 drop BOTH EYES TID 06/02/17 [ History] Cinnamon Bark [Cinnamon] 500 mg PO DAILY 06/02/17 [History] Clopidogrel [Plavix] 75 mg PO DAILY 06/02/17 [History] Curcumin 1 tab PO DAILY 06/02/17 [History] Diclofenac Sodium [Voltaren] 2 gm TP BID 06/02/17 [History] Etodolac [Lodine] 400 mg PO BID 06/02/17 [History] Furosemide [Lasix] 20 mg PO DAILY PRN 06/02/17 [History] Gabapentin [Neurontin] 600 mg PO QID 06/02/17 [History] Lactobacillus Acidophilus [Acidophilus] 1 each PO BID 06/02/17 [History] Lidocaine 4% CRM (LMX) [Lmx 4] 1 appl TP BID 06/02/17 [History] Loperamide HCl [Anti-Diarrheal] 2 mg PO TID PRN 06/02/17 [History] Multivitamin [One Daily Multivitamin] 1 each PO DAILY 06/02/17 [History] Mupirocin [Bactroban Oint] 1 appl TP TID 06/02/17 [History] Naproxen [Naprosyn] 500 mg PO BID 06/02/17 [History] Niacin 100 mg PO DAILY 06/02/17 [History] Omeprazole [PriLOSEC] 20 mg PO DAILY 06/02/17 [History] Potassium Citrate/Citric Acid [Virtrate-K Solution] 10 ml PO DAILY 06/02/17 [ History] Promethazine [Phenergan] 25 mg PO Q6H PRN 06/02/17 [History] Trazodone HCl 100 mg PO HS PRN 06/02/17 [History] Vardenafil HCl [Levitra] 10 mg PO AD PRN 06/02/17 [History] Venlafaxine XR (24 HR) [Effexor XR] 150 mg PO DAILY 06/02/17 [History] metFORMIN [Glucophage] 500 mg PO BIDWM 06/02/17 [History] 3 Allergy/AdvReac Type Severity Reaction Status Date / Time No Known Allergies Allergy Verified 06/02/17 14:33 ENT Exam Initial Vital Signs Temp Pulse Resp BP Pulse Ox 98.9 F 85 24 115/82 96 06/02/17 14:30 06/02/17 14:30 06/02/17 14:30 06/02/17 14:30 06/02/17 14:30 - General physical appearance well developed, well nourished, other (sl pale and diaphoretic) - Eyes normal ocular movement - ENT normal nares (normal oral cavity mucosa without lesions or inflammation), normal mucosa (ears- mild tympanosclerosis right ear, left normal no erythema or middle ear effusion in either, oral cavity mucosa is grossly normal without lesions or erythema), no congestion - Neck no masses, trachea midline, other (supple, non-tender, full range of motion) - Neurologic other (Davdi Hallpike maneuver at the bedside negative for vertigo and nystagmus. ) Exam Initial Vital Signs Temp Pulse Resp BP Pulse Ox 98.9 F 85 24 115/82 96 06/02/17 14:30 06/02/17 14:30 06/02/17 14:30 06/02/17 14:30 06/02/17 14:30 Results - Labs 06/02/17 16:06 06/03/17 05:56 Abnormal lab results Hgb 17.1 g/dL (12.9-16.9) H 06/02/17 16:06 Chloride 113 mEq/L (98-107) H 06/03/17 05:56 POC Glucose 96 (58-89) H 06/03/17 16:13 Serum Total Protein 6.2 g/dL (6.4-8.9) L 06/03/17 05:56 HDL Cholesterol 28 mg/dL (40-59) L 06/03/17 05:56 Diabetes panel 06/03/17 Range/Units 05:56 Sodium 140 (136-145) mEq/L Potassium 4.0 (3.5-5.1) mEq/L Chloride 113 H (98-107) mEq/L Carbon Dioxide 26 (23-29) mEq/L BUN 16 (6-20) mg/dL Creatinine 0.90 (0.70-1.30) mg/dL Glucose 87 (70-105) mg/dL Calcium 8.9 (8.6-10.3) mg/dL AST 15 (13-39) Units/L ALT 14 (7-52) Units/L Alkaline Phosphatase 75 (34-104) Units/L Albumin 3.8 (3.5-5.7) g/dL Triglycerides 113 (< 150) mg/dL HDL Cholesterol 28 L (40-59) mg/dL Calcium panel 06/03/17 Range/Units 05:56 Calcium 8.9 (8.6-10.3) mg/dL Albumin 3.8 (3.5-5.7) g/dL Pituitary panel 06/03/17 Range/Units 05:56 Sodium 140 (136-145) mEq/L Potassium 4.0 (3.5-5.1) mEq/L Chloride 113 H (98-107) mEq/L Carbon Dioxide 26 (23-29) mEq/L BUN 16 (6-20) mg/dL Creatinine 0.90 (0.70-1.30) mg/dL Glucose 87 (70-105) mg/dL Calcium 8.9 (8.6-10.3) mg/dL Adrenal panel 06/03/17 Range/Units 05:56 Sodium 140 (136-145) mEq/L Potassium 4.0 (3.5-5.1) mEq/L Chloride 113 H (98-107) mEq/L Carbon Dioxide 26 (23-29) mEq/L BUN 16 (6-20) mg/dL Creatinine 0.90 (0.70-1.30) mg/dL Glucose 87 (70-105) mg/dL Calcium 8.9 (8.6-10.3) mg/dL Total Bilirubin 0.7 (0.3-1.0) mg/dL AST 15 (13-39) Units/L ALT 14 (7-52) Units/L Alkaline Phosphatase 75 (34-104) Units/L Albumin 3.8 (3.5-5.7) g/dL All other labs normal. Consult Discharge Plan - Plan Referrals: [facility] [Outside]
[2017-06-03] MEDS: traMADol 50 MG TABLET PO PRN (21:23)
--- NOTE | 2017-06-04 09:06 | Discharge Summary ---
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 transplanted heart: mus[place]ogee heart Associated angina: without angina Qualified Code(s): I25.10 - Atherosclerotic heart disease of [place] coronary artery without angina pectoris (5) Hyperlipidemia Priority: Secondary Status: Chronic Qualifiers: Hyperlipidemia type: pure hypercholesterolemia Qualified Code(s): E78.00 - Pure hypercholesterolemia, unspecified; E78.0 - Pure hypercholesterolemia - Discharge Medications Prescriptions: Meclizine [Antivert] 12.5 mg PO TID PRN #30 tablet PRN Reason: Dizziness Home Medications: Atorvastatin [Lipitor] 40 mg PO HS 06/02/17 [History] Baclofen 20 mg PO TID PRN 06/02/17 [History] Benzonatate [Tessalon] 100 mg PO TID 06/02/17 [History] Carboxymethylcellulose Sodium [Refresh Liquigel] 1 drop BOTH EYES TID 06/02/17 [ History] Cinnamon Bark [Cinnamon] 500 mg PO DAILY 06/02/17 [History] Clopidogrel [Plavix] 75 mg PO DAILY 06/02/17 [History] Curcumin 1 tab PO DAILY 06/02/17 [History] Diclofenac Sodium [Voltaren] 2 gm TP BID 06/02/17 [History] Furosemide [Lasix] 20 mg PO DAILY PRN 06/02/17 [History] Gabapentin [Neurontin] 600 mg PO QID 06/02/17 [History] Lactobacillus Acidophilus [Acidophilus] 1 each PO BID 06/02/17 [History] Lidocaine 4% CRM (LMX) [Lmx 4] 1 appl TP BID 06/02/17 [History] Loperamide HCl [Anti-Diarrheal] 2 mg PO TID PRN 06/02/17 [History] Multivitamin [One Daily Multivitamin] 1 each PO DAILY 06/02/17 [History] Mupirocin [Bactroban Oint] 1 appl TP TID 06/02/17 [History] Niacin 100 mg PO DAILY 06/02/17 [History] Omeprazole [PriLOSEC] 20 mg PO DAILY 06/02/17 [History] Potassium Citrate/Citric Acid [Virtrate-K Solution] 10 ml PO DAILY 06/02/17 [ History] Promethazine [Phenergan] 25 mg PO Q6H PRN 06/02/17 [History] Trazodone HCl 100 mg PO HS PRN 06/02/17 [History] Vardenafil HCl [Levitra] 10 mg PO AD PRN 06/02/17 [History] Venlafaxine XR (24 HR) [Effexor Xr] 150 mg PO DAILY 06/02/17 [History] metFORMIN [Glucophage] 500 mg PO BIDWM 06/02/17 [History] Meclizine [Antivert] 12.5 mg PO TID PRN #30 tablet 06/04/17 [Rx] Allergies/Adverse Reactions: 3 Allergy/AdvReac Type Severity Reaction Status Date / Time No Known Allergies Allergy Verified 06/02/17 14:33 Procedures/tests Complete & Pending: Procedures Performed prior 72 hours Category Date Time Status MR angio head wo con [MR] Routine MRI 06/03/17 20:50 Completed MR angio neck wo/w con [MR] Routine MRI 06/03/17 20:50 Completed MR head/brain wo con [MR] Routine MRI 06/03/17 20:50 Completed EV echocardiogram Routine Y 06/03/17 20:47 Completed Date of admission: 06/02/17 18:16 [facility] Consults: 06/02/17 20:49 Consult to Neurology [CONS] Routine Consulting Provider: [facility] Reason for Consult: severe virtigo Time Notified: 20:50 Call Completed: No 06/03/17 12:22 Consult to Physical Therapy [CONS] Routine Comment: Evaluate, develop and implement POC Reason for Consult: BPPV 06/03/17 13:43 Consult to ENT [CONS] Routine Consulting Provider: [facility] [place] Reason for Consult: BPPV Call Completed: Yes Discharging clinician: Luis Wing Anticipated date of discharge: 06/04/17 - Patient Status Disposition: Home, Self-Care Condition: Fair Functional capacity at discharge: independent ambulation Overall status at discharge: patient is back to baseline - Discharge Instructions Follow Up With: [facility] [Outside] (Appt. already made. Thank you) Geovanni Conn MD [Partnered Physician] - 06/09/17 1:00 pm Additional Instructions: Be sure to keep your ENT appointment next Thursday follow-up with your PCP in a week or 2 take meclizine as needed for dizziness when standing from a seated or lying position rise very slowly - Diet and Activity Activity: resume usual activities as tolerated Diet: advance to your usual diet Hospital course: Mr. Nath is a 56 year old male Patient with history of CAD, diabetes, high cholesterol, hypertension, TIA and PTSD. Patient is sent to emergency room from ENT office due to acute vertigo pain in both ears. Patient has had right ear pain started about 6 weeks ago with severe vertigo-like syndrome worse at night associated with diaphoresis and nausea and loss of balance. Patient also has had recurrent sinus infections and has been seen and tried on several different antibiotic by [place]. The symptom was not getting better. He was sent by the ENT office for evaluation. Patient developed weakness , nauseated and bilateral ear pain and then sent to the emergency room. CT of the head in the emergency room was negative patient being admitted for further evaluation with MRI. Patient feels better after being given meclizine in the emergency room per ER documentation ENT evaluation was unremarkable findings to explain symptoms. He was admitted and a stroke workup was initiated. EKG is unremarkable. Continuous telemetry. Neck MRA no occlusion, Brain MRI and MRA is no acute finding. Ortho statics were performed and demonstrated BPPV. Echocardiogram demonstrated EF 60%, no valvular dysfunction or vegetations. Head CT was unremarkable. It was established that most likely diagnosis is BPPV. Neurology He has an appointment to follow up with ENT on Thursday. ENT recommended that he keep that appointment. He is to follow up with his PCP in a week or 2. In his education less it was seen that he takes multiple different types of NSAIDs and these were recommended to him to be stopped. Also he was informed that his vardenafil could contribute to the orthostatic hypotension. Upon discharge his vitals were stable and she denied chest pain, shortness breath, syncope amid dizziness. He was alert and oriented times 3 with full capacity instigated a clear understanding of the treatment plan. - Time Spent with Patient Total time spent providing and/or coordinating discharge services: Greater than 30 minutes - Constitutional Vitals: Temp Pulse Resp BP Pulse Ox 97.9 F 45 12 128/77 95 06/04/17 08:36 06/04/17 08:36 06/04/17 08:36 06/04/17 08:36 06/04/17 08:36 General appearance: Present: A&O X 3, pleasant, no acute distress Exam: Gen.: Vitals noted. No acute distress. AAOx3 HEENT: oropharynx clear, Normocephalic, atraumatic Neck: Supple. left lymph node palpable Cardiac: RRR, no murmur, +S1/S2 Pulmonary: CTA bilaterally, no wheezes, rales or rhonchi, equal chest expansion Abdomen: soft, nontender, Bowel sounds noted, no guarding Extremities: no BLE edema, nontender calf, no cyanosis or clubbing Neuro: A&Ox3, moves all extremities, no focal deficits Psych: Appropriate mood and behavior <Luis Wing - Last Filed: 06/04/17 15:19> Date of Encounter: 06/04/17 - Discharge Diagnosis (1) Syncope Status: Acute Qualifiers: Syncope type: unspecified Qualified Code(s): R55 - Syncope and collapse (2) Diabetes 1.5, managed as type 2 Status: Chronic (3) Vertigo Status: Acute (4) CAD (coronary artery disease) Status: Chronic Qualifiers: Coronary Disease-Associated Artery/Lesion type: [place] artery [place] vs. transplanted heart: [place] heart Associated angina: without angina Qualified Code(s): I25.10 - Atherosclerotic heart disease of [place] coronary artery without angina pectoris (5) Hyperlipidemia Status: Chronic Qualifiers: Hyperlipidemia type: pure hypercholesterolemia Qualified Code(s): E78.00 - Pure hypercholesterolemia, unspecified; E78.0 - Pure hypercholesterolemia Procedures/tests Complete & Pending: Procedures Performed prior 72 hours Category Date Time Status MR angio head wo con [MR] Routine MRI 06/03/17 20:50 Completed MR angio neck wo/w con [MR] Routine MRI 06/03/17 20:50 Completed MR head/brain wo con [MR] Routine MRI 06/03/17 20:50 Completed EV echocardiogram Routine Y 06/03/17 20:47 Completed Date of admission: 06/02/17 18:16 [facility] physician: [facility] Consults: 06/02/17 20:49 Consult to Neurology [CONS] Routine Consulting Provider: [facility] Reason for Consult: severe virtigo Time Notified: 20:50 Call Completed: No 06/03/17 12:22 Consult to Physical Therapy [CONS] Routine Comment: Evaluate, develop and implement POC Reason for Consult: BPPV 06/03/17 13:43 Consult to ENT [CONS] Routine Consulting Provider: [facility] Reason for Consult: BPPV Call Completed: Yes Hospital course: Mr. Nath is a 56 year old male - Time Spent with Patient Total time spent providing and/or coordinating discharge services: - Constitutional Vitals: Temp Pulse Resp BP Pulse Ox 98.4 F 55 12 140/87 98 06/04/17 11:10 06/04/17 11:10 06/04/17 11:10 06/04/17 11:10 06/04/17 11:10 - Attending Attestation I examined this patient and my medical decision-making was reviewed with the Resident Physician. I agree with the documented findings, disposition and treatment plan as described except to the extent set forth below. Patients symptoms are primarily auditory. He has no CVA. Work up is negative. His orthostatics have improved with IVF Educated extensively on use of multiple NSAIDS and risk for auditory symptoms, and risk of renal and cardiac disease. Follow up with [facility] as in resident physician's documentation
[2017-06-04] MEDS: Venlafaxine XR (24 HR) 150 MG CAP.ER.24H PO SCH (09:17)
[2017-06-04] MEDS: Lactobacillus 1 EACH CAP.SPRINK PO SCH (09:17)
[2017-06-04] MEDS: Multivit/Ca/Min/Fe/FA 1 TAB TABLET PO SCH (09:17)
[2017-06-04] MEDS: Artificial Tears SOLN 15 ML BOTTLE BOTH EYES SCH (09:18)
[2017-06-04] MEDS: Gabapentin 300 MG CAPSULE PO SCH ×2 (09:18→12:26)
[2017-06-04] MEDS: traMADol 50 MG TABLET PO PRN (09:22)
[2017-06-04 11:12] VITALS: BP 140/87
--- NOTE | 2017-06-04 12:27 | Neurology Progress Note ---
Date of Encounter: 06/04/17 Time of Encounter: 12:25 Assessment and Plan (1) Vertigo Current Visit: Yes Status: Acute Of unknown etiology. Symptoms are quite diverse and difficult to explain by [employer] pathology. There may be some problems related to cervical DDD and he does have radicular type of symptoms at the cervical region. This a chronic condition and he is follow up with doctor at [facility]. No further testing appear necessary. Subjective Principal diagnosis: paresthesia Interval history: Patient seen and examined. he is doing well, has some shoulder and arm pain for which he had received injections to his neck. Other symptoms including ear pain and throat discomforts are not significant at this time. He is able to eat comfortably. No dizziness reported. MRI of brain and MRA of brain/neck completed no significant acute pathology present to explain his clinical symptom Objective - Constitutional Vitals: Temp Pulse Resp BP Pulse Ox 98.4 F 55 12 140/87 98 06/04/17 11:10 06/04/17 11:10 06/04/17 11:10 06/04/17 11:10 06/04/17 11:10 - Neurological Exam Sensorimotor examination: Present: intact Motor Examination: Present: grossly full strength in all extremities Motor examination - left side: 5/5: deltoids, biceps, triceps, wrist flexion, wrist extension, hip flexors, phosphorus processing supervisor, quadriceps, tibialis Anterior, toe extension (EHL), plantarflexion Sensation intact: Present: intact Mental Status Examination: Present: awake, alert, oriented to person, oriented to place, oriented to time, follows commands appropriately, answers questions appropriately, no agnosia, no aphasia, no aproxia Cranial nerve examination: Present: PERRL, EOMI, visual floyd intact, sensory to face intact, mastication intact, no facial asymmetry is present, no dysarthria, flexes SCM and trapezius muscles symmetrically with full power, tongue protrudes midline, no atrophy or facial fasiculations present Cerebellar examination: Present: no dysmetria, performs finger to nose and heel to hceng symmetrically without ataxia Ocular dysmotility: gaze-evoked nystagmus (2 beat nystagmus of L eye with leftward gaze) Results - Laboratory Findings CBC and BMP: 06/02/17 16:06 06/03/17 05:56 Abnormal lab findings: Abnormal lab results Hgb 17.1 g/dL (12.9-16.9) H 06/02/17 16:06 Chloride 113 mEq/L (98-107) H 06/03/17 05:56 POC Glucose 99 (58-89) H 06/04/17 11:02 Serum Total Protein 6.2 g/dL (6.4-8.9) L 06/03/17 05:56 HDL Cholesterol 28 mg/dL (40-59) L 06/03/17 05:56 Consult Discharge Plan - Plan Referrals: [facility] [Outside]
[2017-06-04] MEDS ORDERED: FLUARIX QUAD 2017-18 36MOS UP/PF 0.5 ML SYRINGE IM ONE (14:02)
== END 2017-06-04 14:23 | disposition home or self-care (01) ==
LOC: EMEROO 14:11 → 3ANU 14:11
PROVIDERS: ADMIT Nurse Practitioner; ATTEND Internal Medicine

== ENCOUNTER 2019-02-10 17:11 | Observation (INO) ==
[2019-02-10] MEDS ORDERED: *HR* FentaNYL (PF) 100 MCG/2 ML VIAL IVP ONE (18:38)
[2019-02-10 19:15] LABS: Bilirubin,Urine Negative (Negative); Blood,Urine Large (Negative); Clarity,Urine Clear (Clear); Color,Urine Orange (Yellow); Glucose,Urine (UA) Normal (Normal); Ketones,Urine Negative (Negative); Leukocyte Esterase,Urine Negative (Negative); Nitrite,Urine Positive (Negative); Protein,Urine Negative (Neg-Trace); Specific Gravity,Urine 1.022 (1.010-1.025); Urobilinogen,Urine Normal (Normal)
[2019-02-10 19:16] LABS: Bacteria,Urine None Seen per hpf (None-Few); Hyaline Casts,Urine None Seen per lpf (None-Few); RBC,Urine TNTC per hpf (0-3); Squamous Epithelial Cell,Urine Few per lpf (None-Few)
[2019-02-10] MEDS ORDERED: cefTRIAXone 1,000 MG in Water for inj. (sterile) 10 ML IVP ONE (19:51)
[2019-02-10] MEDS ORDERED: Ondansetron 4 MG/2 ML VIAL IVP PRN (21:09)
[2019-02-10] MEDS ORDERED: Naloxone 0.4 MG/ML INJ IVP PRN (21:09)
[2019-02-10] MEDS ORDERED: D5% in Water 1,000 ML IVC PRN (21:11)
[2019-02-10] MEDS ORDERED: *HR* Dextrose 50 % in Water (Syg) 50 ML SYRINGE IVP PRN (21:11)
[2019-02-10] MEDS ORDERED: Dextrose Gel 15 GM/37.5 ML TUBE PO PRN ×2 (21:11)
[2019-02-10] MEDS ORDERED: Pantoprazole 40 MG VIAL IVP ONE (21:12)
[2019-02-10] MEDS: 0.9 % Sodium Chloride 1,000 ML IVC SCH (22:31)
[2019-02-10] MEDS: Insulin LISPRO 300 UNITS/3 ML VIAL SQ SCH (23:51)
[2019-02-11 05:04] LABS: Hematocrit 41.5 % (37.5-50.1); Hemoglobin 14.4 g/dL (12.9-16.9); Mean Corpuscular HGB Conc 34.7 g/dL (31.6-35.5); Mean Corpuscular Hemoglobin 32.4 pg (28.0-33.3); Mean Corpuscular Volume 93.3 fL (83.0-100.0); Mean Platelet Volume 10.6 fL (9.4-12.4); Platelet Count 141 K/mcL (140-400); Red Blood Count 4.45 M/mcL (4.19-5.50); Red Cell Distribution Width 12.7 % (11.5-14.5); White Blood Count 5.8 K/mcL (4.3-11.1)
[2019-02-11 05:19] LABS: INR 0.9; Prothrombin Time 10.7 Seconds (9.4-12.1)
[2019-02-11 05:22] LABS: Activated Partial Thrombo Time 29.2 Seconds (26.0-36.0)
[2019-02-11 05:26] LABS: Alanine Aminotransferase 8 Units/L (7-52); Albumin 3.3 g/dL (3.5-5.7); Albumin/Globulin Ratio 1.9 (1.1-2.2); Alkaline Phosphatase 57 Units/L (34-104); Aspartate Amino Transferase 12 Units/L (13-39); BUN/Creatinine Ratio 16 (6-26); Bilirubin,Total 0.3 mg/dL (0.3-1.0); Blood Urea Nitrogen 17 mg/dL (6-20); Calcium 7.9 mg/dL (8.6-10.3); Carbon Dioxide 22 mEq/L (23-29); Chloride 116 mEq/L (98-107); Globulin 1.7 g/dL (2.4-3.5); Glucose 114 mg/dL (70-105); Magnesium 1.8 mg/dL (1.6-2.6); Osmolality,Calculated 300 (280-300); Phosphorous 3.6 mg/dL (2.7-4.5); Sodium 144 mEq/L (136-145); eGFR For African Americans > 60 (> 60); eGFR For Non-African Americans > 60 (> 60)
[2019-02-11] MEDS: Insulin LISPRO 300 UNITS/3 ML VIAL SQ SCH ×2 (06:01→12:12)
[2019-02-11] MEDS: 0.9 % Sodium Chloride 1,000 ML IVC SCH (07:03)
[2019-02-11] MEDS ORDERED: *HR* HYDROmorphone (PF) 1 MG/ML SYRINGE IVP PRN ×3 (10:28→18:02)
[2019-02-11] MEDS ORDERED: cefTRIAXone 1,000 MG in Water for inj. (sterile) 10 ML IVP SCH ×2 (11:00→19:00)
[2019-02-11] MEDS ORDERED: Artificial Tears SOLN 15 ML BOTTLE BOTH EYES SCH (15:00)
[2019-02-11] MEDS ORDERED: tiZANidine 4 MG TABLET PO SCH (15:00)
[2019-02-11] MEDS ORDERED: *HR* FentaNYL (PF) 100 MCG/2 ML VIAL ONE (16:19)
[2019-02-11] MEDS ORDERED: *HR* Midazolam HCl 2 MG/2 ML VIAL ONE (16:19)
[2019-02-11] MEDS ORDERED: Lidocaine -MPF 2% 2 ML VIAL ONE (16:20)
[2019-02-11] MEDS ORDERED: Dexamethasone 4 MG/ML VIAL ONE (16:20)
[2019-02-11] MEDS ORDERED: Ondansetron 4 MG/2 ML VIAL ONE (16:20)
[2019-02-11] MEDS ORDERED: *HR* Succinylcholine 200 MG/10 ML VIAL IVP ONE (16:21)
[2019-02-11] MEDS ORDERED: Famotidine 20 MG/2 ML VIAL ONE (16:49)
[2019-02-11] MEDS ORDERED: Acetaminophen IV 1,000 MG/100 ML INFUS..BTL ONE (16:49)
[2019-02-11] MEDS ORDERED: *HR* Propofol 200 MG/20 ML VIAL IVP ONE (16:51)
[2019-02-11] MEDS ORDERED: Isovue-300 50ML VIAL ONE (16:53)
[2019-02-11] MEDS ORDERED: Lidocaine HCL 4 ML Topical Solution (Laryng-O-Jet Kit Sterile Pak) TP ONE (17:01)
[2019-02-11] MEDS ORDERED: Naloxone 0.4 MG/ML INJ IVP PRN (18:02)
[2019-02-11] MEDS ORDERED: D5% in Water 1,000 ML IVC PRN (18:02)
[2019-02-11] MEDS ORDERED: Ondansetron 4 MG/2 ML VIAL IVP PRN (18:02)
[2019-02-11] MEDS ORDERED: Dextrose Gel 15 GM/37.5 ML TUBE PO PRN ×2 (18:02)
[2019-02-11] MEDS ORDERED: *HR* Dextrose 50 % in Water (Syg) 50 ML SYRINGE IVP PRN (18:02)
[2019-02-11] MEDS ORDERED: *HR* HYDROcodone/Acet 5/325 mg TABLET PO PRN (18:55)
[2019-02-11] MEDS: tiZANidine 4 MG TABLET PO SCH (20:28)
[2019-02-11] MEDS: Pregabalin 75 MG CAPSULE PO SCH (20:30)
[2019-02-11] MEDS: OLOPATADINE HCL OP SCH (20:33)
[2019-02-11] MEDS: Artificial Tears SOLN 15 ML BOTTLE BOTH EYES SCH (20:33)
[2019-02-11] MEDS ORDERED: Olopatadine Hcl [Pataday] OP SCH (21:00)
[2019-02-11] MEDS ORDERED: Pregabalin 75 MG CAPSULE PO SCH (21:00)
[2019-02-11] MEDS ORDERED: Acetaminophen IV 1,000 MG/100 ML INFUS..BTL IVPB ONE (22:04)
[2019-02-12] MEDS: Insulin LISPRO 300 UNITS/3 ML VIAL SQ SCH ×3 (00:02→08:27)
[2019-02-12] MEDS ORDERED: Acetaminophen IV 1,000 MG/100 ML INFUS..BTL IVPB ONE (05:09)
[2019-02-12 06:25] VITALS: BP 127/58
[2019-02-12] MEDS: Pregabalin 75 MG CAPSULE PO SCH (08:25)
[2019-02-12] MEDS: tiZANidine 4 MG TABLET PO SCH (08:26)
[2019-02-12] MEDS: Artificial Tears SOLN 15 ML BOTTLE BOTH EYES SCH (08:29)
[2019-02-12] MEDS: OLOPATADINE HCL OP SCH (08:29)
[2019-02-17 23:02] LABS: Calculi Mass 23 mg
== END 2019-02-12 11:37 | disposition home or self-care (01) ==
LOC: EMEROOARM 17:11 → 3ANU 17:11 → SUATTDRO 20:06 → 3ANU 20:34
PROVIDERS: ADMIT Family Medicine; ATTEND Internal Medicine